=== PATIENT | female | born 1960 | race Caucasian/White ===

== ENCOUNTER 2017-05-13 05:19 | Day surgery (SDC) | payer BC, OTHER ==
[2017-05-11 11:26] VITALS: BMI 22.6
[2017-05-13] MEDS ORDERED: LIDOCAINE 1%/EPI 1:100000 (20 ML MULTI DOSE VIAL) ONE (12:54)
[2017-05-13] MEDS ORDERED: BUPIVACAINE HCL/PF 0.5% (5MG/ML) 10 ML VIAL ONE (12:54)
[2017-05-13] MEDS ORDERED: MIDAZOLAM HCL 2 MG/2 ML SINGLE DOSE VIAL ONE (13:06)
[2017-05-13] MEDS ORDERED: ceFAZolin SODIUM 1 GM VIAL IVPB ONE (13:25)
[2017-05-13] MEDS ORDERED: BUPIVACAINE HCL/PF 0.5% (5MG/ML) 10 ML VIAL IJ ONE ×2 (13:46→13:50)
--- NOTE | 2017-05-13 14:03 | OP ---
Operative Note - Note: Operative Date: 05/13/17 Pre-Operative Diagnosis: right knee pain, OA, meniscus tear Operation: right knee arthroscopy, partial lateral meniscectomy, debridement chondroplasty, removal loose bodies Post-Operative Diagnosis: Same as Pre-op Surgeon: Marc Landeros Upholstery Sewer: Joel Vera Anesthesiologist/GAS ENGINE MECHANIC: Trung Forrest Anesthesia: General, Local Specimens Removed: shavings, loose bodies Estimated Blood Loss (mls): 0 Drains & Tubes with Location: 0 Drains, Volume Out (mls): 0 Blood Volume Replaced (mls): 0 Fluid Volume Replaced (mls): 500
--- NOTE | 2017-05-13 14:04 | HP ---
[facility] - Chief Complaint Chief Complaint: right knee pain History of Present Illness: right knee pain, OA, meniscus tear History Source: Patient Limitations to Obtaining History: No Limitations - Past Medical History Allergies/Adverse Reactions: Allergies Allergy/AdvReac Type Severity Reaction Status Date / Time bee venom protein (honey bee) Allergy Verified 05/11/17 11:17 - Current Medications Current Medications: Home Medications Medication Instructions Recorded Multivitamin [One Daily] 1 each PO DAILY 05/11/17 [place]-3/Dha/Epa/Fish Oil [[place] 3 1 each PO DAILY 05/11/17 500 Softgel] Tumeric 1 tab DAILY 05/11/17 Satellite Physical Exam - Physical Examination Vital Signs: Vital Signs Period Temp Pulse Resp BP Sys/Brewer Pulse Ox Last 24 Hr 98.2 F 69 18 112/76 100 General Appearance: Well Nourished ENT: Clear Lung: Clear to auscultation Heart: Regular rate & rhythm Breasts: Soft Abdomen: Soft Extremities: No edema Satellite Impression/Plan - Impression/Plan Impression: right knee pain, OA, meniscus tear Operative Procedure: right knee arthroscopy Date to be Performed: 05/13/17
[2017-05-13] MEDS ORDERED: ONDANSETRON 4 MG/2 ML VIAL IVPUSH PRN (14:11)
[2017-05-13] MEDS ORDERED: ACETAMINOPHEN 325 MG TABLET (FP) PO PRN (14:11)
[2017-05-13] MEDS ORDERED: LACTATED RINGERS SOLUTION 1,000 ML IV SCH (14:15)
[2017-05-13 15:33] VITALS: TEMP 97.6
[2017-05-13 16:28] VITALS: BP 104/40; PULSE 73
--- NOTE | 2017-05-13 21:02 | OP ---
DATE OF OPERATION: 05/13/2017 PREOPERATIVE DIAGNOSES: 1. Right knee pain. 2. Meniscus tear. 3. Osteoarthritis. POSTOPERATIVE DIAGNOSES: 1. Right knee pain. 2. Meniscus tear. 3. Osteoarthritis. PROCEDURE: 1. Right knee arthroscopy. 2. Partial lateral meniscectomy. 3. Debridement chondroplasty. 4. Removal of loose body. SURGEON: Marc Landeros MD POWDER HAND: Joel Vera MD ANESTHESIOLOGIST: Trung Forrest CRNA ANESTHESIA: LMA with intraarticular injection of 20 mL 0.50% Marcaine. DRAINS: None. COMPLICATIONS: None. SPECIMEN: Loose body and arthroscopic shavings. BLOOD LOSS: None. BLOOD GIVEN: None. FLUID REPLACEMENT: 500 mL INDICATION FOR PROCEDURE: This patient is a 56-year-old female with a preoperative diagnosis of right knee pain and meniscus tear and osteoarthritis. After understanding the potential risks, complications, alternatives, and benefits of surgery versus nonsurgical treatment, the patient is electing to go forward with surgery. DESCRIPTION OF PROCEDURE: The patient brought to the operating room, a peripheral IV was placed and IV sedation given. LMA anesthesia was induced. Ample Webril was placed around the right thigh. Tourniquet was applied. A Styrofoam ring was applied. She was placed in the C clamp leg bass with ample padding throughout. The right lower extremity was prepped and draped in sterile fashion, elevated, exsanguinated with an Esmarch bandage and tourniquet inflated to 275 mmHg. A superior medial outflow portal was established. A lateral portal was established, diagnostic arthroscopy was performed using a spinal needle, and medial portal was established. A probe was introduced into the medial compartment. The patient was seen to have significant osteoarthritis in the medial femoral condyle with areas of grade 4 chondromalacia and some loose articular cartilage. There were also loose bodies of cartilage floating around the knee. A curved shaver was introduced into the joint, and gentle debridement chondroplasty was performed of only any loose fragments, and some loose bodies were removed. The patient's medial meniscus looked quite good. Patient also had grade 2 changes on the medial tibial plateau. The intercondylar notch looked good. There was a lot of anterior fat and excessive fat around Hoffa's fat pad. This was debrided as well. Next, our attention turned to the lateral compartment. The patient, unfortunately, had significant grade 4 osteoarthritis of the lateral femoral condyle and grade 1 to grade 2 changes of the lateral tibial plateau. There was some fraying of the lateral meniscus. Therefore, this was debrided with the curved shaver. After the partial lateral meniscectomy, our attention was turned to the patellofemoral joint where the patient had her worst arthritis with grade 3/grade 4 on the undersurface of the patella and grade 3/grade 4 around the entire femoral trochlea. Overall, she had arthritis in all 3 joints, and it was very widespread. The femoral trochlea chondromalacia was debrided as well with a curved shaver, and additional loose bodies removed. The area was washed out. All instrumentation was removed. Extra fluid removed. Incisions closed with 3-0 nylon suture. The area was then washed and dried, covered with Xeroform, 4 x 4, Webril, and tourniquet was taken down after total tourniquet time of 25 minutes. There were no complications during the case. The patient tolerated the procedure well, was brought to the ambulatory recovery room in stable condition. Joel Vera MD dictating for MD MARC Low M.D. [id number]
--- NOTE | 2017-05-15 19:04 | PATH ---
Surgical Pathology Report Patient Name: GUERDA FARMER [facility]. Rec. #: [id number] /Age/Gender: 1960 (Age: 56) / F Account: [id number] Location: [facility] SUR[facility] Taken: 05/13/2017 Received: 05/14/2017 Reported: 05/15/2017 Physicians: Joel Vera M.D. Copy To: [id number] Specimen(s) Received RIGHT KNEE SHAVING Clinical History Tear right knee Final Diagnosis KNEE SHAVINGS, RIGHT, ARTHROSCOPY, DEBRIDEMENT CHONDROPLASTY, PARTIAL LATERAL MENISCECTOMY, REMOVAL OF LOOSE BODIES: FIBROMEMBRANOUS TO FIBROADIPOSE TISSUE, CARTILAGE, AND SYNOVIUM. Electronically Signed Valentine Chatterjee M.D. Gross Description Received in formalin, labeled "right knee shavings," is a 4.6 x 4.2 x 0.6 cm. aggregate of garcia-yellow soft tissue fragments. A account service representative portion is submitted in one cassette. 05/14/2017 [facility]05/14/2017
== END 2017-05-13 16:20 | disposition home or self-care (01) ==
LOC: JASU-SURG 05:19
PROVIDERS: ATTEND Orthopaedic Surgery
PROC: 0SCC4ZZ Extirpation of Matter from Right Knee Joint, Percutaneous Endoscopic Approach (ICD-10-PCS; 2017-05-13)
PROC: 0SBC4ZZ Excision of Right Knee Joint, Percutaneous Endoscopic Approach (ICD-10-PCS; principal; 2017-05-13 12:00)
DX: M23.231 Derangement of other medial meniscus due to old tear or injury, right knee (principal)
CPT/HCPCS: 88304-TC; 94760

== ENCOUNTER 2022-08-14 06:15 | Day surgery (SDC) | payer BC, OTHER ==
[2022-07-28 10:49] VITALS: BMI 21.7
[2022-08-14] MEDS ORDERED: BUPIVACAINE HCL 100 ML ONE (07:12)
[2022-08-14] MEDS ORDERED: PROPOFOL 20 ML ONE (07:13)
[2022-08-14] MEDS ORDERED: MIDAZOLAM HCL 2 MG/2 ML SINGLE DOSE VIAL ONE (07:13)
[2022-08-14] MEDS ORDERED: LIDOCAINE HCL/PF 2% SDV 5ML VIAL ONE (07:13)
[2022-08-14] MEDS ORDERED: KETOROLAC TROMETHAMINE 30 MG/1 ML VIAL ONE (08:17)
[2022-08-14] MEDS ORDERED: DEXAMETHASONE SOD PHOSPHATE 4 MG/1 ML VIAL ONE (08:17)
[2022-08-14] MEDS ORDERED: ONDANSETRON 4 MG/2 ML VIAL ONE (08:17)
[2022-08-14] MEDS ORDERED: ceFAZolin SODIUM 1 GM VIAL ONE (08:22)
[2022-08-14] MEDS ORDERED: ONDANSETRON 4 MG/2 ML VIAL IVPUSH PRN (09:07)
[2022-08-14] MEDS ORDERED: PROMETHAZINE HCL 25 MG/1 ML VIAL IVPB PRN (09:07)
[2022-08-14] MEDS ORDERED: oxyCODONE HCL 5 MG TABLET PO PRN ×2 (09:07)
[2022-08-14] MEDS ORDERED: LACTATED RINGERS SOLUTION 1,000 ML IV SCH (09:15)
[2022-08-14] MEDS ORDERED: FENTANYL CITRATE/PF 50 MCG/ML VIAL ONE (09:56)
[2022-08-14] MEDS ORDERED: oxyCODONE HCL 5 MG TABLET ONE (10:25)
[2022-08-14 10:38] VITALS: RESP 16; TEMP 97.8
[2022-08-14 11:04] VITALS: BP 115/67; PULSE 64
== END 2022-08-14 11:15 | disposition home or self-care (01) ==
LOC: FASU 06:15
PROVIDERS: ATTEND Orthopaedic Surgery
PROC: 0SBD4ZZ Excision of Left Knee Joint, Percutaneous Endoscopic Approach (ICD-10-PCS; 2022-08-14)
PROC: 0SBD4ZZ Excision of Left Knee Joint, Percutaneous Endoscopic Approach (ICD-10-PCS; principal; 2022-08-14 08:32)
DX: M65.862 Other synovitis and tenosynovitis, left lower leg (principal); M17.12 Unilateral primary osteoarthritis, left knee
CPT/HCPCS: 94760